=== PATIENT | male | born 1950 | race Caucasian/White ===

== ENCOUNTER 2017-12-02 18:25 | Emergency (ER) | payer MEDICARE, OTHER ==
[~2017-12-02] VITALS: Ht 177.8 cm; Wt 86.2 kg
[~2017-12-02 18:25] MED LIST: ALBU90OI INH; ASPI81CH PO; COLCHICINE0.6 MG PO; GABA300 PO; IBUP600 PO; Mucinex600 MG PO; Naprosyn500 MG PO; Norco 10-325 T1 EACH PO; Norco 5-325 Ta1 EACH PO; PRED10 PO; Prednisone20 MG PO; TAMS.4ER PO; TOCO400; TRAM50 PO; Therapeutic M1 EAC5 PO; Zithromax250 MG PO
[2017-12-02 19:17] LABS: BASOPHILS ABSOLUTE AUTO 0.04 K/mm3 (0.00-0.23); BASOPHILS PERCENT AUTO 1 % (0-2); EOSINOPHILS ABSOLUTE AUTO 0.14 K/mm3 (0.00-0.68); EOSINOPHILS PERCENT AUTO 2 % (0-6); Hematocrit 41.1 % (37.0-53.0); Hemoglobin 13.8 g/dL (13.5-17.5); IMMATURE GRAN ABSOLUTE AUTO 0.01 K/mm3 (0.00-0.10); IMMATURE GRAN PERCENT AUTO 0 % (0-1); LYMPHOCYTES ABSOLUTE AUTO 1.67 K/mm3 (0.84-5.20); LYMPHOCYTES PERCENT AUTO 25 % (21-46); MONOCYTES ABSOLUTE AUTO 0.69 K/mm3 (0.16-1.47); MONOCYTES PERCENT AUTO 10 % (4-13); Mean Corpuscular HGB 29.4 pg (26.0-34.0); Mean Corpuscular HGB Conc 33.6 g/dL (31.5-36.5); Mean Corpuscular Volume 88 fL (80-100); Mean Platelet Volume 9.6 fL (9.1-12.4); NEUTROPHILS ABSOLUTE AUTO 4.27 K/mm3 (1.96-9.15); NEUTROPHILS PERCENT AUTO 63 % (41-73); Platelet Count 153 K/mm3 (150-400); RDW Coefficient Variation 13.7 % (11.7-14.2); RDW Standard Deviation 43.8 fL (35.1-46.3); Red Blood Cell Count 4.69 M/mm3 (4.30-5.90); White Blood Cell Count 6.82 K/mm3 (4.00-11.30)
[2017-12-02 19:35] LABS: Alanine Aminotransfer (ALT/SGP 99 U/L (12-78); Albumin, Blood 3.3 g/dL (3.4-5.0); Albumin/Globulin Ratio 0.9 (0.8-1.8); Alk Phos 68 U/L (50-136); Anion Gap 7 mmol/L (6-16); Aspartate Aminotrans (AST/SGOT 51 U/L (12-37); Bilirubin, Total 0.8 mg/dL (0.1-1.0); Blood Urea Nitrogen 14 mg/dL (8-24); Bun/Creatinine Ratio 17.5 (12.0-20.0); CO2, Blood 31 mmol/L (21-32); Calcium, Blood 8.4 mg/dL (8.5-10.1); Chloride, Blood 100 mmol/L (98-108); Globulin, Blood 3.7 g/dL (2.2-4.0); Glomerular Filtration Rate >60 (60-); Glucose, Blood 93 mg/dL (70-99); Potassium, Blood 3.7 mmol/L (3.5-5.5); Sodium, Blood 138 mmol/L (136-145)
== END 2017-12-02 22:20 | disposition home or self-care (01) ==
LOC: ER 18:25
PROVIDERS: Emergency Medicine
DX: R51 Headache (principal); C61 Malignant neoplasm of prostate; C78.00 Secondary malignant neoplasm of unspecified lung; C78.7 Secondary malignant neoplasm of liver and intrahepatic bile duct; C79.51 Secondary malignant neoplasm of bone; Z79.899 Other long term (current) drug therapy; Z87.891 Personal history of nicotine dependence
CPT/HCPCS: 36415; 70470; 80053; 85025; 93005; 93010; 96361; 96374; 96375; 99284; J1200; J1885; J2765; J7030; Q9967

== ENCOUNTER 2019-04-20 17:52 | Emergency (ER) | payer MEDICARE, OTHER ==
[~2019-04-20] VITALS: Ht 177.8 cm; Wt 81.7 kg
== END 2019-04-20 20:01 | disposition home or self-care (01) ==
LOC: ER 17:52
DX: S61.210A Laceration without foreign body of right index finger without damage to nail, initial encounter (principal); Z23 Encounter for immunization; C61 Malignant neoplasm of prostate; Z87.891 Personal history of nicotine dependence; Z79.899 Other long term (current) drug therapy; W26.0XXA Contact with knife, initial encounter
CPT/HCPCS: 12001; 90471; 90714; 99282-25

== ENCOUNTER 2019-11-04 09:12 | Emergency (ER) | payer MEDICARE, OTHER ==
[~2019-11-04] VITALS: Ht 180.3 cm; Wt 79.4 kg
[2019-11-04] MEDS ORDERED: METPRE4DP PO (12:19)
[2019-11-04] MEDS ORDERED: Norco 7.5-3251 EACH PO (12:19)
== END 2019-11-04 12:27 | disposition home or self-care (01) ==
LOC: ER 09:12
DX: M54.41 Lumbago with sciatica, right side (principal); Z79.899 Other long term (current) drug therapy; Z87.891 Personal history of nicotine dependence; Z98.890 Other specified postprocedural states
CPT/HCPCS: 72100; 99283-25; J1100

== ENCOUNTER → 2020-06-18 | Outpatient (CLI) | payer MEDICARE, OTHER ==
[~2020-06-18] MED LIST changes: +METPRE4DP PO; +Norco 7.5-3251 EACH PO
[2020-06-18 13:42] LABS: Hematocrit 26.5 % (37.0-53.0); Hemoglobin 8.6 g/dL (13.5-17.5); Mean Corpuscular HGB 28.8 pg (26.0-34.0); Mean Corpuscular HGB Conc 32.5 g/dL (31.5-36.5); Mean Corpuscular Volume 89 fL (80-100); Mean Platelet Volume 9.8 fL (9.1-12.4); Platelet Count 147 K/mm3 (150-400); RDW Standard Deviation 67.2 fL (35.1-46.3); Red Blood Cell Count 2.99 M/mm3 (4.30-5.90); White Blood Cell Count 11.37 K/mm3 (4.00-11.30)
[2020-06-18 13:43] LABS: International Normalized Ratio 1.09; Prothrombin Time Results 11.6 Sec (9.7-11.5)
== END ==
LOC: LAB SHORT 11:46 → LAB 11:46
PROVIDERS: Internal Medicine Hematology & Oncology
DX: C78.7 Secondary malignant neoplasm of liver and intrahepatic bile duct (principal); R18.8 Other ascites
CPT/HCPCS: 85027; 85610; 85730